=== PATIENT | female | born 2000 | race Caucasian/White ===

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

== ENCOUNTER 2020-09-25 21:47 | Emergency (ER) | payer BC, MEDICAID, SELFPAY ==
[2020-09-25 22:38] VITALS: BP 126/82; PULSE 123; RESP 18; TEMP 37; O2SAT 96; BMI 38.0
--- NOTE | 2020-09-25 23:10 | ED_ITS ---
HPI - Dizziness General: Chief Complaint: Dizziness Stated Complaint: n/v w/traces blood, h/a x 2 days, 14 wks preg Time Seen by Provider: 09/25/20 23:08 History of Present Illness: HPI Narrative: Patient comes in with episodes of nausea and vomiting, and cough with fever at times for the last 3 to 4 days. Patient is 14 weeks . Patient appears mildly unwell but not toxic. Patient is alert and oriented. Skin is warm and dry. Patient denies any r outine medication use. Associated symptoms: Reports nausea and vomiting Review of Systems General: Reports: 10 or more systems reviewed and unremarkable except in HPI and below Resp: Reports: non-productive cough GI: Reports: nausea and vomiting PFSH ED PFSH: Social History Smoking and tobacco status: never smoked Alcohol intake: never Physical Exam Const: COMMON NORMALS: no acute distress and patient oriented x3 GENERAL APPEARANCE: cooperative HENMT: COMMON NORMALS: normocephalic, TM's normal bilaterally and Normal e xternal nose present HEAD & SCALP: normal to inspection and normocephalic NOSE: Normal external nose present TYMPANIC MEMBRANE: TM's normal bilaterally MOUTH: Normal oral and palatal mucosa present THROAT: posterior oropharynx normal Eye: GENERAL EYE: appearance normal, both eyes and all related structures Neck/C-Spine: COMMON NORMALS: full ROM Lymph: LYMPHATIC: no lymphadenopathy noted Chest: COMMONS NORMALS: normal inspection of the chest Resp: COMMON NORMALS: normal respiratory effort EFFORT & INSPECTION: Yes able to speak in complete sentences Cardio: COMMON NORMALS: regular rate and regular rhythm RATE: regular rate RHYTHM: regular rhythm GI: COMMON NORMALS: non-tender : COMMON NORMALS: Yes no CVA tenderness BLADDER/KIDNEY EXAM: Yes no CVA tenderness Back/Pelvis: COMMON NORMALS: no CVA tenderness and thoracic and lumbar spine normal to inspection Extremity: COMMON NORMALS: normal to inspection Neuro: COMMON NORMALS: patient oriented x3 and moves all extremities Psych: COMMON NORMALS: mental status grossly normal and cooperative Skin: COMMON NORMALS: no rashes or lesions noted GENERAL SKIN EXAM: no rashes or lesions noted Course Vital Signs: Vital signs: Vital Signs Temperature 98.6 F 09/25/20 22:38 Pulse Rate 123 H 07/06/21 22:38 Respiratory Rate 18 09/25/20 22:38 Blood Pressure 126/82 09/25/20 22:38 Pulse Oximetry 96 09/25/20 22:38 MDM - Dizziness MDM Narrative: Medical decision making narrative: Patient comes in today for complaints of upper respiratory infection and nausea with vomiting. Patient is 14 weeks . Patient spouse and daughter are also sick. On exam patient has nasal congestion, posterior pharynx slightly erythematous, abdomen soft and nontender, vital signs are normal except for a mild elevation in pulse at 123. Differential diagnosis includes dehydration, COVID-19, gastroenteritis, viral syndrome. COVID-19 test was positive. Urinalysis noted some ketones. CMP suggested may be some mild dehydration with a sodium 132, CBC was unremarkable, hCG was 62,000. Patient was given Zofran and was able to tolerate oral fluids. I encourage patient to continue drinking plenty of fluids and follow-up with primary care INSTITUTIONAL RESEARCH COORDINATOR for other recommendations. They reported understanding agreed to plan. Lab Data: Labs: Lab Results 09/26/20 09/26/20 09/26/20 Range/Units 00:30 00:33 00:50 WBC 5.9 (4.5-13.0) 10^3/ uL RBC 4.13 (4.1-5.3) 10^6/u L Hgb 12.2 (11.5-15.3) g/dL Hct 37.8 (37.0-47.0) % MCV 91.5 (81-99) fL MCH 29.5 (28.0-34.0) pg MCHC 32.3 (30.0-36.0) g/dL RDW 13.2 (12.1-15.1) % Plt Count 143 (130-400) 10^3/c mm MPV 12.7 H (7.4-10.4) fL Neut % (Auto) 79.1 % Lymph % (Auto) 9.7 % [place] % (Auto) 10.2 % Eos % (Auto) 0.2 % Baso % (Auto) 0.3 % Neut # (Auto) 4.63 (1.8-8.0) 10^3/u L Lymph # (Auto) 0.6 L (1.5-6.5) 10^3/u L [place] # (Auto) 0.6 (0.2-0.9) 10^3/u L Eos # (Auto) 0.0 (0.0-0.8) 10^3/u L Baso # (Auto) 0.0 (0.0-0.1) 10^3/u L Nucleated RBC % (a uto) 0 % Nucleated RBCs # 0.0 /100WBC Sodium (136-145) mmol/L Potassium (3.5-5.1) mmol/L Chloride (98-107) mmol/L Carbon Dioxide (22-29) mmol/L Anion Gap (5-19) BUN (6-20) mg/dL Creatinine (0.5-0.9) mg/dL GFR Calculation (90-130) mL/min Glucose (65-115) mg/dL Calculated Osmolal ity (285-295) mOsm/k g Calcium (8.5-10.5) mg/dL Ser , Maggie i-Qnt mIU/mL Urine Color Yellow (Yellow) Urine Appearance Clear (CLEAR) Urine pH 5 (5-7) Ur Specific Gravit y 1.020 (1.005-1.030) Urine Protein Neg (Negative) Urine Glucose (UA) Norm (Normal) Urine Ketones 3+ H (Negative) Urine Blood Neg (Negative) Urine Nitrate Negative (Negative) Urine Bilirubin Neg (Negative) Urine Urobilinogen Norm (Negative) mg/dL Ur Leukocyte Smita ase Negative (Negative) SARS-CoV-2 Ag (Rap id) Positive H (Negative) 09/26/20 09/26/20 Range/Units 00:50 00:50 WBC (4.5-13.0) 10^3/ uL RBC (4.1-5.3) 10^6/u L Hgb (11.5-15.3) g/dL Hct (37.0-47.0) % MCV (81-99) fL MCH (28.0-34.0) pg MCHC (30.0-36.0) g/dL RDW (12.1-15.1) % Plt Count (130-400) 10^3/c mm MPV (7.4-10.4) fL Neut % (Auto) % Lymph % (Auto) % [place] % (Auto) % Eos % (Auto) % Baso % (Auto) % Neut # (Auto) (1.8-8.0) 10^3/u L Lymph # (Auto) (1.5-6.5) 10^3/u L [place] # (Auto) (0.2-0.9) 10^3/u L Eos # (Auto) (0.0-0.8) 10^3/u L Baso # (Auto) (0.0-0.1) 10^3/u L Nucleated RBC % (a uto) % Nucleated RBCs # /100WBC Sodium 132 L (136-145) mmol/L Potassium 4.0 (3.5-5.1) mmol/L Chloride 102 (98-107) mmol/L Carbon Dioxide 17 L (22-29) mmol/L Anion Gap 17.0 (5-19) BUN 5 L (6-20) mg/dL Creatinine 0.5 (0.5-0.9) mg/dL GFR Calculation 157.3 H (90-130) mL/min Glucose 76 (65-115) mg/dL Calculated Osmolal ity 270 L (285-295) mOsm/k g Calcium 9.5 (8.5-10.5) mg/dL Ser , Maggie i-Qnt 80803.00 mIU/mL Urine Color (Yellow) Urine Appearance (CLEAR) Urine pH (5-7) Ur Specific Gravit y (1.005-1.030) Urine Protein (Negative) Urine Glucose (UA) (Normal) Urine Ketones (Negative) Urine Blood (Negative) Urine Nitrate (Negative) Urine Bilirubin (Negative) Urine Urobilinogen (Negative) mg/dL Ur Leukocyte Smita ase (Negative) SARS-CoV-2 Ag (Rap id) (Negative) Discharge Plan Discharge Patient Disposition: Home Clinical Impression: COVID-19 Qualifiers: Weeks of gestation: 14 weeks Qualified Code(s): Z3A.14 - 14 weeks gestation of Condition: Stable Prescriptions: New ondansetron 4 mg tablet,disintegrating 4 mg PO Q8H PRN (Reason: nausea and vomiting) Qty: 7 RF: 0 Discontinued ibuprofen 800 mg Tablet 800 mg PO TID Qty: 90 RF: 2 No Action 400 mcg Tablet,Chewable 400 mcg PO DAILY RF: 0 Discharge Orders: Discharge ED (Routine); Ordered 09/26/20 Ordered By: Randal Lott Discharge Diet: Advance as tolerated Discharge Activity: Increase activity as tolerated Patient Instructions: Dehydration (ED), Upper Respiratory Infection (ED), Opioid Safety Activity Restrictions/Additional Instructions: Use ondansetron 1 tablet every 8 hours as needed for nausea and vomiting. Drink plenty of water. Use Gatorade's and other fluids to maintain hydration. Follow-up with primary care or INSTITUTIONAL RESEARCH COORDINATOR for other recommendations of treatment. Return to the emergency department for worsening symptoms or new concerns. Coding Level of Care Code ED Performance Improvement Analyst for [place] Fwd Exam Comprehensive
[2020-09-26] MEDS: ondansetron 4 MG Tablet PO (00:31)
[2020-09-26 00:57] LABS: Add Urine Microscopic? NO; Charge for UA Resulting for Rev
[2020-09-26 00:59] LABS: Basophils % 0.3 %; Eosinophils % 0.2 %; Hematocrit 37.8 % (37.0-47.0); Hemoglobin 12.2 g/dL (11.5-15.3); Lymphocytes # 0.6 10^3/uL (1.5-6.5); Lymphocytes % 9.7 %; Mean Corpuscular HGB Conc 32.3 g/dL (30.0-36.0); Mean Corpuscular Hemoglobin 29.5 pg (28.0-34.0); Mean Corpuscular Volume 91.5 fL (81-99); Mean Platelet Volume 12.7 fL (7.4-10.4); Monocytes # 0.6 10^3/uL (0.2-0.9); Monocytes % 10.2 %; Neutrophils # 4.63 10^3/uL (1.8-8.0); Neutrophils % 79.1 %; Nucleated Red Blood Cells % 0 %; Platelet Count 143 10^3/cmm (130-400); Red Blood Count 4.13 10^6/uL (4.1-5.3); Red Cell Distribution Width 13.2 % (12.1-15.1); White Blood Count 5.9 10^3/uL (4.5-13.0)
[2020-09-26 01:04] LABS: Bilirubin Urine Neg (Negative); Blood Urine Neg (Negative); Glucose Urine UA Norm (Normal); Ketones Urine 3+ (Negative); Leukocyte Esterase Urine Negative (Negative); Nitrate Urine Negative (Negative); Protein Urine Neg (Negative); Urine Appearance Clear (CLEAR); Urine Color Yellow (Yellow); Urobilinogen Urine Norm (Negative); pH Urine 5 (5-7)
[2020-09-26 01:19] LABS: Blood Urea Nitrogen 5 mg/dL (6-20); Calcium 9.5 mg/dL (8.5-10.5); Carbon Dioxide 17 mmol/L (22-29); Chloride 102 mmol/L (98-107); Glomerular Filtration Rate 157.3 mL/min (90-130); Glucose 76 mg/dL (65-115); Osmolality Calculated 270 mOsm/kg (285-295); Sodium 132 mmol/L (136-145)
[2020-09-26 01:21] LABS: SARS Covid-2 Antigen Positive (Negative)
== END 2020-09-26 01:52 | disposition home or self-care (01) ==
PROVIDERS: Emergency Provider Nurse Practitioner Family
DX: O98.512 Other viral diseases complicating pregnancy, second trimester (principal); U07.1 COVID-19; O99.512 Diseases of the respiratory system complicating pregnancy, second trimester; J98.8 Other specified respiratory disorders; Z3A.14 14 weeks gestation of pregnancy
CPT/HCPCS: 80048; 81003; 84702; 85025; 87426; 99283; Q0162

== ENCOUNTER 2021-05-27 14:08 | Emergency (ER) | payer BC, MEDICAID, SELFPAY ==
[2021-05-27 14:25] VITALS: BP 155/71; PULSE 100; RESP 18; TEMP 37.1; O2SAT 98; BMI 36.6
[2021-05-27 15:34] VITALS: BP 125/78; PULSE 95; RESP 16; O2SAT 99
--- NOTE | 2021-05-27 15:45 | W.ED.GENADLT ---
HPI - General Adult General: Chief complaint: Vaginal Bleeding Stated complaint: Heavy bleeding, had son 2 months ago Time Seen by Provider: 05/27/21 15:10 Source: patient Mode of arrival: ambulatory Limitations: no limitations History of Present Illness: 20-year-old female presents emergency room complaining of heavy vaginal bleeding. Began last night. She states she soaked 5 pads but it was 5 regular pantiliners not heavy pads. She not been lightheaded or dizzy no tachycardia. Patient delivered a baby approximately 2 months ago vaginally she has had irregular bleeding since then. Onset (ago): hour(s) Severity: moderate Relieving factors: none Exacerbating factors: none Associated symptoms: Deny chest pain, confusion, cough, diaphoresis, decreased appetite, dyspnea, fevers/chills, headache(s), malaise, nausea, rash, palpitations, seizures, short of breath, syncope, vomiting or weakness Treatments prior to arrival: none Review of Systems Const: Denies: malaise or diaphoresis ENMT: Denies: throat pain, ear or mastoid pain, nasal discharge or nasal congestion Card: Denies: chest pain, palpitations or syncope Resp: Denies: dyspnea GI: Denies: nausea or vomiting : Denies: flank pain, difficulty voiding, dysuria, urinary frequency or urinary urgency Skin/Breast: Denies: rash Neuro: Denies: headache(s) or confusion PFS ED PFSH: Surgical History (Updated 05/27/21 @ 16:10 by Constantino Strange DO) No significant past surgical history Social History Smoking and tobacco status: never smoked Alcohol intake: never Physical Exam Const: COMMON NORMALS: no acute distress GENERAL APPEARANCE: cooperative and comfortable ORIENTATION/CONSCIOUSNESS: Yes awake, Yes oriented to person, Yes oriented to place and Yes oriented to time HENMT: COMMON NORMALS: normocephalic, atraumatic and hearing grossly normal bilaterally HEAD & SCALP: normocephalic and atraumatic Neck/C-Spine: COMMON NORMALS: no JVD Resp: COMMON NORMALS: normal respiratory effort, No retractions, No use of accessory muscles and clear to auscultation bilaterally AUSCULTATION: clear to auscultation bilaterally Cardio: COMMON NORMALS: no JVD, regular rate, regular rhythm and No murmurs present (Cardio) RATE: regular rate RHYTHM: regular rhythm GI: COMMON NORMALS: Soft to palpation and No hepatosplenomegaly present AUSCULTATION: Yes normoactive bowel sounds PALPATION: Yes Soft to palpation, No Tenderness to palpation present (GI), No Guarding due to palpation present (GI) and Yes No hepatosplenomegaly present Extremity: COMMON NORMALS: normal to inspection, capillary refill normal, no clubbing, cyanosis or edema, no calf tenderness and no pedal edema Neuro: SENSORIUM/ORIENTATION: Yes oriented to person, Yes oriented to place and Yes oriented to time Skin: COMMON NORMALS: no rashes or lesions noted GENERAL SKIN EXAM: no rashes or lesions noted Course Vital Signs: Vital signs: Vital Signs Temperature 98.7 F 05/27/21 14:25 Pulse Rate 89 05/27/21 17:57 Respiratory Rate 16 05/27/21 17:57 Blood Pressure 121/79 05/27/21 17:57 Pulse Oximetry 100 05/27/21 17:57 [facility] - General Adult Medical Decision Making Reviewed findings with the patient. Beta-hCG is negative hemoglobin is stable and bleeding is already slowed down. Discussed different options with her we could do progesterone withdrawal bleed she will have a heavy period at the end of the time where she can just let this continue and then follow-up with her primary care doctor. States she has been very irregular since her last delivery she may need to be on oral contraceptives to regulate her periods as well. She is not looking to conceive at this point. After discussion she prefers to just follow-up with her primary care we will hold off on any progesterones withdrawal bleed. Return if has further problems. Medical Records I reviewed the patient's medical records. Lab Data I reviewed the patient's lab results. : 05/27/21 15:42 05/27/21 15:42 Laboratory Results WBC 7.7 10^3/uL (4.5-13.0) 05/27/21 15:42 RBC 4.64 10^6/uL (4.1-5.3) 05/27/21 15:42 Hgb 14.2 g/dL (11.5-15.3) 05/27/21 15:42 Hct 41.7 % (37.0-47.0) 05/27/21 15:42 MCV 89.9 fl (81-99) 05/27/21 15:42 MCH 30.6 pg (28.0-34.0) 05/27/21 15:42 MCHC 34.1 g/dL (30.0-36.0) 05/27/21 15:42 RDW 12.8 % (12.1-15.1) 05/27/21 15:42 Plt Count 224 10^3/cmm (130-400) 05/27/21 15:42 MPV 12.6 fL (7.4-10.4) H 05/27/21 15:42 Neut % (Auto) 60.6 % 05/27/21 15:42 Lymph % (Auto) 29.1 % 05/27/21 15:42 [place] % (Auto) 8.9 % 05/27/21 15:42 Eos % (Auto) 0.5 % 05/27/21 15:42 Baso % (Auto) 0.4 % 05/27/21 15:42 Neut # (Auto) 4.67 10^3/uL (1.8-8.0) 05/27/21 15:42 Lymph # (Auto) 2.3 10^3/uL (1.5-6.5) 05/27/21 15:42 [place] # (Auto) 0.7 10^3/uL (0.2-0.9) 05/27/21 15:42 Eos # (Auto) 0.0 10^3/uL (0.0-0.8) 05/27/21 15:42 Baso # (Auto) 0.0 10^3/uL (0.0-0.1) 05/27/21 15:42 Nucleated RBC % (auto) 0 % 05/27/21 15:42 Nucleated RBCs # 0.0 /100WBC 05/27/21 15:42 Sodium 140 mmol/L (136-145) 05/27/21 15:42 Potassium 3.7 mmol/L (3.5-5.1) 05/27/21 15:42 Chloride 101 mmol/L (98-107) 05/27/21 15:42 Carbon Dioxide 24 mmol/L (22-29) 05/27/21 15:42 Anion Gap 18.7 (5-19) 05/27/21 15:42 BUN 11 mg/dL (6-20) 05/27/21 15:42 Creatinine 0.7 mg/dL (0.5-0.9) 05/27/21 15:42 GFR Calculation 106.7 mL/min (90-130) 05/27/21 15:42 Glucose 82 mg/dL (65-115) 05/27/21 15:42 Calculated Osmolality 288 mOsm/kg (285-295) 05/27/21 15:42 Calcium 9.6 mg/dL (8.5-10.5) 05/27/21 15:42 Total Bilirubin 0.4 mg/dL (0.15-1.2) 05/27/21 15:42 AST 48 U/L (0-32) H 05/27/21 15:42 ALT 91 U/L (0-33) H 05/27/21 15:42 Alkaline Phosphatase 76 IU/L (35-105) 05/27/21 15:42 Total Protein 8.0 g/dL (6.6-8.7) 05/27/21 15:42 Albumin 4.9 g/dL (3.5-5.2) 05/27/21 15:42 Globulin 3.1 g/dL (1.3-4.6) 05/27/21 15:42 HCG, Qual Negative (Negative) 05/27/21 16:04 Urine Color Straw (Yellow) 05/27/21 16:10 Urine Appearance Clear (CLEAR) 05/27/21 16:10 Urine pH 6.5 (5-7) 05/27/21 16:10 Ur Specific [place] 1.010 (1.005-1.030) 05/27/21 16:10 Urine Protein Neg (Negative) 05/27/21 16:10 Urine Glucose (UA) Norm (Normal) 05/27/21 16:10 Urine Ketones Negative (Negative) 05/27/21 16:10 Urine Blood 3+ (Negative) H 05/27/21 16:10 Urine Nitrate Negative (Negative) 05/27/21 16:10 Urine Bilirubin Neg (Negative) 05/27/21 16:10 Urine Urobilinogen Norm mg/dL (Negative) 05/27/21 16:10 Ur Leukocyte Esterase Negative (Negative) 05/27/21 16:10 Urine RBC 0-4 /hpf (0-2) H 05/27/21 16:10 Urine WBC None /hpf (0-5) 05/27/21 16:10 Ur Squamous Epith Cells None /hpf (0-5) 05/27/21 16:10 Amorphous Sediment Not Reportable 05/27/21 16:10 Urine Bacteria Trace /hpf (NONE) 05/27/21 16:10 Discharge Plan Discharge Patient Disposition: Home Clinical Impression: Menometrorrhagia Condition: Stable Prescriptions: No Action Control-Unknown Name 1 tab PO DAILY 0RF Discharge Orders: Discharge ED (Routine); Ordered 05/27/21 Ordered By: Constantino Strange Discharge Diet: Usual diet Discharge Activity: Resume usual activity Patient Instructions: Opioid Safety Activity Restrictions/Additional Instructions: Follow-up with your primary care doctor. Stand Alone Forms: Work/School Release Coding Level of Care Code ED [employer] for Luis Fwd Exam Comprehensive
[2021-05-27 15:59] LABS: Basophils % 0.4 %; Eosinophils % 0.5 %; Hematocrit 41.7 % (37.0-47.0); Hemoglobin 14.2 g/dL (11.5-15.3); Lymphocytes # 2.3 10^3/uL (1.5-6.5); Lymphocytes % 29.1 %; Mean Corpuscular HGB Conc 34.1 g/dL (30.0-36.0); Mean Corpuscular Hemoglobin 30.6 pg (28.0-34.0); Mean Corpuscular Volume 89.9 fl (81-99); Mean Platelet Volume 12.6 fL (7.4-10.4); Monocytes # 0.7 10^3/uL (0.2-0.9); Monocytes % 8.9 %; Neutrophils # 4.67 10^3/uL (1.8-8.0); Neutrophils % 60.6 %; Nucleated Red Blood Cells % 0 %; Platelet Count 224 10^3/cmm (130-400); Red Blood Count 4.64 10^6/uL (4.1-5.3); Red Cell Distribution Width 12.8 % (12.1-15.1); White Blood Count 7.7 10^3/uL (4.5-13.0)
[2021-05-27 16:17] LABS: Alanine Aminotransferase 91 U/L (0-33); Albumin Level 4.9 g/dL (3.5-5.2); Alkaline Phosphatase 76 IU/L (35-105); Anion Gap 18.7 (5-19); Aspartate Amino Transferase 48 U/L (0-32); Blood Urea Nitrogen 11 mg/dL (6-20); Calcium 9.6 mg/dL (8.5-10.5); Carbon Dioxide 24 mmol/L (22-29); Chloride 101 mmol/L (98-107); Creatinine Clr Calc Pharmacy 134.2741; Globulin 3.1 g/dL (1.3-4.6); Glomerular Filtration Rate 106.7 mL/min (90-130); Glucose 82 mg/dL (65-115); Osmolality Calculated 288 mOsm/kg (285-295); Potassium 3.7 mmol/L (3.5-5.1); Sodium 140 mmol/L (136-145); Total Bilirubin 0.4 mg/dL (0.15-1.2)
[2021-05-27 16:53] LABS: HCG, Serum Qual Negative (Negative)
[2021-05-27 17:06] LABS: Add Urine Culture? No; Add Urine Microscopic? YES; Bacteria Urine TRACE /hpf; Bilirubin Urine Neg (Negative); Blood Urine 3+ (Negative); Glucose Urine UA Norm (Normal); Ketones Urine Negative (Negative); Leukocyte Esterase Urine Negative (Negative); Nitrate Urine Negative (Negative); Protein Urine Neg (Negative); RBC Urine 0-4 /hpf (0-2); Urine Appearance Clear (CLEAR); Urine Color Straw (Yellow); Urobilinogen Urine Norm (Negative); pH Urine 6.5 (5-7)
[2021-05-27 17:57] VITALS: BP 121/79; PULSE 89; RESP 16; O2SAT 100
== END 2021-05-27 17:59 | disposition home or self-care (01) ==
PROVIDERS: Emergency Provider Family Medicine
DX: N92.0 Excessive and frequent menstruation with regular cycle (principal)
CPT/HCPCS: 51701; 80053; 81001; 84703; 85025; 99283

== ENCOUNTER 2022-04-09 14:50 | Outpatient (CLI) | payer BC, MEDICAID, SELFPAY ==
--- NOTE | 2022-04-09 15:02 | US_ITS ---
WS: [id number] LIMITED OBSTETRICAL ULTRASOUND HISTORY: HYDRONEPHROSIS IN COMPARISON: 12/30/2021 and 10/09/2021 Presentation: Vertex. Cervix: Closed and normal length. Placenta: Anterior, no previa. Grade: 1 HEART: FHR of 157 BPM. measurements: BPD = 8.2 cm = 32w5d HC = 29.7 cm = 32w6d AC = 28.7 cm = 32w5d FL = 6.5 cm = 33w2d CALLI: 10.2 cm EFW: 2080 g; 53rd %. AGA by ultrasound: 32w6d MIKE by ultrasound: 05/29/2022 Dilatation of the RIGHT renal pelvis persists. Moderate hydronephrosis of the renal pelvis. No true a xial imaging was submitted for adequate diameter measurement. US/[place] [id number] IMPRESSION: 1. Single intrauterine gestation of 32 weeks 6 days with an EDC of 05/29/2022. A ppropriate growth since the first trimester ultrasound. 2. Moderate RIGHT hydronephrosis. The entire ureter does not appear dilated. S uspect UPJ obstruction.
== END 2022-04-09 14:51 | disposition home or self-care (01) ==
LOC: RAD 14:50
PROVIDERS: Visit Provider Family Medicine
DX: O35.8XX0 Maternal care for other (suspected) fetal abnormality and damage, not applicable or unspecified (principal); Z3A.32 32 weeks gestation of pregnancy
CPT/HCPCS: 76816

== ENCOUNTER 2022-05-26 20:09 | Inpatient (IN) | payer BC, MEDICAID, SELFPAY ==
[2022-05-26 20:00] VITALS: BMI 38.5
[2022-05-26 20:16] VITALS: BP 117/70; PULSE 106
[2022-05-26 20:22] VITALS: RESP 16
[2022-05-26] MEDS: miSOPROStol 100 mcg tablet 25 MCG VAGINAL (20:53)
[2022-05-26 20:56] VITALS: BP 136/76; PULSE 82
[2022-05-26 21:04] LABS: Basophils % 0.3 %; Eosinophils % 0.3 %; Hematocrit 40.4 % (37.0-47.0); Hemoglobin 14.1 g/dL (11.5-15.3); Lymphocytes % 19.3 %; Mean Corpuscular HGB Conc 34.9 g/dL (30.0-36.0); Mean Corpuscular Hemoglobin 32.1 pg (28.0-34.0); Mean Platelet Volume 13.3 fL (7.4-10.4); Monocytes # 0.8 10^3/uL (0.2-0.9); Monocytes % 8.2 %; Neutrophils # 7.22 10^3/uL (1.8-7.7); Neutrophils % 70.6 %; Nucleated Red Blood Cells % 0 %; Platelet Count 130 10^3/cmm (130-400); Red Blood Count 4.39 10^6/uL (4.1-5.3); White Blood Count 10.2 10^3/uL (4.0-10.0)
[2022-05-26 21:26] VITALS: BP 125/58; PULSE 88
[2022-05-27] VITALS (51 sets, daily range): BP systolic 92–150; BP diastolic 54–85; PULSE 64–176; RESP 16–18; TEMP 36.4–36.8; O2SAT 82–100
[2022-05-27] MEDS: oxytocin 30 UNIT/500 ML BAG IV (03:14)
[2022-05-27] MEDS: dextrose 5%-lactated ringers 1,000 ML 125 ML IV ×2 (03:14→12:46)
[2022-05-27] MEDS: fentaNYL 50 mcg/mL INJ 2mL IVP (06:24)
[2022-05-27] MEDS: lactated ringers 1,000 ML 999 ML IV (09:31)
--- NOTE | 2022-05-27 10:37 | ANES.PREANE2 ---
Pre-Anesthetic Assessment Height/Weight: Height 1.57 m Weight 95.708 kg Temp Pulse Resp BP Pulse Ox O2 Del Method 97.5 F L 86 16 141/75 99 05/27/22 07:30 05/27/22 10:32 05/27/22 07:30 05/27/22 10:26 05/27/22 10:32 05/26/22 20:00 Preop Diagnosis: Labor pains Epidural Familial anesthetic complications: None Was Beta Lazaro taken within 24 hours: N/A Was Clonidine taken within 24 hours: N/A Social No alcohol and No tobacco Exam alert, oriented x 3, clear to auscultation bilaterally and regular rate & rhythm Airway Mallampati: Class II Dentition: full History/ROS No significant complaints Metabolic Morbid Obesity Anesthetic Plan ASA status: 2 Anesthesia: Regional (specify below) Risk of > 500 ml blood loss (7ml/kg in children): Yes, adequate IV access and fluids planned Medications/Allergies Home Medications Medication Instructions Recorded Confirmed Last Taken Type prenat.vits,michoacano,yno-fneu-apozt 1 tab PO DAILY 05/26/22 05/26/22 05/26/22 History Allergies Allergy/AdvReac Type Severity Reaction Status Date / Time No Known Allergies Allergy Verified 05/26/22 21:08 Current Medications Generic Name Dose Route Start Last Admin Trade Name Farrukh PRN Reason Stop Dose Admin Fentanyl 25 - 100 mcg 05/26/22 20:22 05/27/22 06:24 Fentanyl 50 Mcg/Ml Inj 2ml IVP 25 mcg Q1H PRN Administration SEVERE PAIN Dextrose/Lactated Ringer's 1,000 mls @ 125 mls/hr 05/26/22 20:30 05/27/22 09:31 Dextrose 5%-Lactated Ringers IV 0 mls/hr .Q8H ALICIA Infusion Oxytocin 30 unit in 500 mls @ 1 mls/hr 05/27/22 02:15 05/27/22 08:15 Pitocin IV 13 milliunit/min .Q24H ALICIA 13 mls/hr Titration Protocol 1 MILLIUNIT/MIN Lactated Ringer's 1,000 mls @ 999 mls/hr 05/27/22 09:22 05/27/22 09:31 Lactated Ringers IV 999 mls/hr .Q1H1M PRN Administration See label comments PFSH Anesthesia Surgical History No significant past surgical history Social History Smoking and tobacco status: never smoked Alcohol intake: never Female Reproductive History : 4 Data Anesthesia 05/26/22 20:40 Short CBC 05/26/22 Range/Units 20:40 WBC 10.2 H (4.0-10.0) 10^3/uL Hgb 14.1 (11.5-15.3) g/dL Hct 40.4 (37.0-47.0) % MCV 92.0 (81-99) fl Plt Count 130 (130-400) 10^3/cmm Neut % (Auto) 70.6 % Neut # (Auto) 7.22 (1.8-7.7) 10^3/uL Cardiac Studies: No Data to Display
--- NOTE | 2022-05-27 10:38 | P.ANES_ITS ---
Anesthesia Procedures Procedure/Date: 05/27/22 Epidural: Time Out Performed: Yes Consents Signed: Procedure Consent Consent: requested by attending/covering physician, from patient, from other, risks and benefits reviewed, patient agrees to proceed and emergency procedure Lumbar Level: L3-L4 Epidural position: sitting Epidural procedure: ster ile prep of area, 1% lidocaine to numb the area, 18 g needle, negative for paresthesia passed, neg for paresthesia, test dose given, 1.5% xylocaine 1:200k epi (5 cc), 0.2% Ropivacaine bolus ml (5), placed PCEA, no systemic response, sterile dressing applied, L.U.D. no apparent complications and 0.2% Ropiavacaine @ mls/hr (13) Additional Comments: RUI at 5 cm, threaded to 11 cm
[2022-05-27] MEDS: ondansetron 2 mg/ML SDV 2 mL 4 MG IVP (12:17)
--- NOTE | 2022-05-27 15:26 | PM.OPHPUD ---
Labor & Delivery H&P Update Date of Procedure: May 27, 2022 Date H&P Performed: 05/22/22 Admission Diagnosis: Preop diagnosis: induction of labor Planned procedure: elective induction of labor
--- NOTE | 2022-05-27 15:27 | PM.DELIVERY ---
Delivery Note: Date of delivery: May 27, 2022 Procedure: Normal spontaneous vaginal delivery Estimated blood loss (mL): 175 Pre-Delivery Course: The patient had routine care at [facility]. There were no complications during the . She was GBS negative. Delivery: This is a 21-year-old G3, P2 at 39 weeks gestation who was admitted for an elective induction. She was given 1 dose of Cytotec and later started on Pitocin. She received an epidural for pain management. She had spontaneous rupture of membranes approximately 3-1/2 hours prior to delivery. There was meconium stained fluid. She had a normal spontaneous vaginal delivery of a viable male Weight 3480 g, 7 pounds 11 ounces, Apgars 8 and 9 over an intact perineum. The infant was suctioned at delivery and placed on the mother's chest. The cord was clamped and cut. The placenta was delivered grossly intact and normal to inspection. There was a first-degree perineal laceration that was sutured using 3-0 chromic. Mother and were doing well after delivery A&P Assessment and plan (1) Normal spontaneous vaginal delivery: Routine care Coding Level of Care Code Acute Code for Chg Fwd Diagnoses Normal spontaneous vaginal delivery O80
[2022-05-27] MEDS: acetaminophen 325 mg Tablet 650 MG PO (17:25)
[2022-05-27] MEDS: benzocaine-menthol 78 gm Canister 1 SPRAY TOPICAL (17:26)
[2022-05-27] MEDS: docusate sodium 100 mg Capsule PO (18:33)
[2022-05-27] MEDS: ibuprofen 800 mg tablet PO (21:04)
[2022-05-28 01:15] VITALS: BP 124/78; PULSE 76; RESP 18
[2022-05-28 04:31] LABS: Hematocrit 33.3 % (37.0-47.0); Hemoglobin 11.1 g/dL (11.5-15.3); Mean Corpuscular HGB Conc 33.3 g/dL (30.0-36.0); Mean Corpuscular Hemoglobin 31.8 pg (28.0-34.0); Mean Corpuscular Volume 95.4 fl (81-99); Platelet Count 125 10^3/cmm (130-400); Red Blood Count 3.49 10^6/uL (4.1-5.3); Red Cell Distribution Width 13.2 % (12.1-15.1); White Blood Count 11.9 10^3/uL (4.0-10.0)
[2022-05-28 05:45] VITALS: BP 112/84; PULSE 92; RESP 19
--- NOTE | 2022-05-28 08:00 | ANE.PACU2 ---
Inpatient post-anesthesia follow up: Airway intact: Yes Vital signs: Temperature 97.9 F Pulse Rate 86 Respiratory Rate 18 Blood Pressure 116/84 Pulse Oximetry 98 Oxygen Delivery Me thod Room Air Oxygen Flow Rate Fraction of Inspir ed Oxygen Hydration adequate: Yes Nausea and vomiting: Yes Pain level: 1 Mental status: Baseline
[2022-05-28 10:05] VITALS: BP 115/83; PULSE 90; RESP 18; TEMP 36.7
[2022-05-28] MEDS: ibuprofen 800 mg tablet PO (10:05)
[2022-05-28] MEDS: prenatal vitamin Capsule 1 CAP PO (10:05)
[2022-05-28] MEDS: docusate sodium 100 mg Capsule PO (10:05)
[2022-05-28 16:44] VITALS: BP 120/87; PULSE 91; RESP 17
--- NOTE | 2022-05-28 17:26 | PM.DCS ---
Discharge Providers Date of Admission: 05/26/22 20:09 Date of Discharge: May 28, 2022 Attending Provider at Admission: Ana Maria Xiong MD Attending Provider at Discharge: Ana Maria Xiong MD Reason for Visit Reason for Visit: induction of labor Hospital Course Hospital Course This is a 21-year-old G3 now P3 who was admitted at 39 weeks for an elective induction. She had a normal spontaneous vaginal delivery of a viable male . Mother and infant did well after delivery. On day #1 she was ambulating, tolerating a regular diet, had some uterine cramping but otherwise no complaints. Physical Exam Narrative: Alert and oriented, sitting on bedside couch, heart regular rate and rhythm, lungs clear to auscultation bilaterally, abdomen is soft and nontender, fundus is firm and U -3, extremities have some edema but no calf tenderness Urinary Catheter Management: Mckeon: Cath Placed During This Visit: yes, but has since been removed by the nurse Reason for Continuing Indwelling Catheter: Decision to DC Catheter Urinary Catheter Date of Insertion: 05/27/22 Urinary Catheter Time of Insertion: 11:05 Date Urinary Catheter Removed: 05/27/22 Time Urinary Catheter Discontinued: 15:00 Discharge Data Studies Completed and Pending Laboratory Results WBC 11.9 10^3/uL (4.0-10.0) H 05/28/22 03:56 RBC 3.49 10^6/uL (4.1-5.3) L 05/28/22 03:56 Hgb 11.1 g/dL (11.5-15.3) L 05/28/22 03:56 Hct 33.3 % (37.0-47.0) L 05/28/22 03:56 MCV 95.4 fl (81-99) 05/28/22 03:56 MCH 31.8 pg (28.0-34.0) 05/28/22 03:56 MCHC 33.3 g/dL (30.0-36.0) 05/28/22 03:56 RDW 13.2 % (12.1-15.1) 05/28/22 03:56 Plt Count 125 10^3/cmm (130-400) L 05/28/22 03:56 MPV 13.0 fL (7.4-10.4) H 05/28/22 03:56 Neut % (Auto) 70.6 % 05/26/22 20:40 Lymph % (Auto) 19.3 % 05/26/22 20:40 [place] % (Auto) 8.2 % 05/26/22 20:40 Eos % (Auto) 0.3 % 05/26/22 20:40 Baso % (Auto) 0.3 % 05/26/22 20:40 Neut # (Auto) 7.22 10^3/uL (1.8-7.7) 05/26/22 20:40 Lymph # (Auto) 2.0 10^3/uL (0.8-4.8) 05/26/22 20:40 [place] # (Auto) 0.8 10^3/uL (0.2-0.9) 05/26/22 20:40 Eos # (Auto) 0.0 10^3/uL (0.0-0.8) 05/26/22 20:40 Baso # (Auto) 0.0 10^3/uL (0.0-0.1) 05/26/22 20:40 Nucleated RBC % (auto) 0 % 05/26/22 20:40 Nucleated RBCs # 0.0 /100WBC 05/26/22 20:40 Vitals Last Vital Signs Temp 98.0 F 05/28/22 10:05 Pulse 91 05/28/22 16:44 Resp 17 05/28/22 16:44 BP 120/87 05/28/22 16:44 Pulse Ox 99 05/27/22 10:37 O2 Del Method 05/28/22 16:44 Discharge Plan Discharge Patient Disposition: Home Condition: Stable Prescriptions: Continued Vitamin Tablet 1 tab PO DAILY Discharge Orders: Discharge Order (Routine); Ordered 05/28/22 Ordered By: Ana Maria Xiong Referrals: Ana Maria Xiong MD [Physician] - 1 month Discharge Diet: Usual diet Discharge Activity: Limit activity as instructed Patient Instructions: , Your Baby (GEN), How to Hold and Breastfeed Your Baby (GEN), and Nipple Soreness (GEN), and Breast Engorgement (GEN), and Plugged Ducts (GEN), How to Increase Your Milk Supply (GEN), How to Tell if Your Baby is Getting Enough Breast Milk (GEN), and Your Diet (GEN), Vaginal Delivery (GEN), OB Discharge Report, OB Food/Drug Interaction Guide, OB Home Care Instructions, Opioid Safety, OB Home Care, OB Proud Parent Packet, OB Vaginal Deliveries Activity Restrictions/Additional Instructions: Nothing per vagina for 6 weeks Discharge Attestations Time Spent in Discharge Care*: less than 30 min Status at Discharge: Cognitive status at discharge: cognitively intact, Behavioral status at discharge: cooperative, Quality Metrics Clinical Quality Measures [ No reported AMI, CVA or VTE this stay] Coding Level of Care Code Acute Code for Chg Fwd
[2022-05-28 19:30] VITALS: BP 116/84; PULSE 86; RESP 18; TEMP 36.6; O2SAT 98
== END 2022-05-28 19:45 | disposition home or self-care (01) | DRG 807 ==
LOC: OPOB 20:09 → OBGYN 20:09
PROVIDERS: Admitting Provider Family Medicine; Visit Provider Family Medicine
DX: O77.0 Labor and delivery complicated by meconium in amniotic fluid (principal); Z37.0 Single live birth; O70.0 First degree perineal laceration during delivery; O99.214 Obesity complicating childbirth; E66.01 Morbid (severe) obesity due to excess calories; Z3A.39 39 weeks gestation of pregnancy; Z87.891 Personal history of nicotine dependence; O75.89 Other specified complications of labor and delivery; K21.9 Gastro-esophageal reflux disease without esophagitis; K59.00 Constipation, unspecified
CPT/HCPCS: 36415; 51702; 59025; 59409; 85025; 85027; 96374; J2405; J2590; J2795; J3010; J7120; J7121